=== PATIENT | female | born 1990 | race Caucasian/White ===

== ENCOUNTER 2021-03-13 22:32 | Emergency (ER) | payer MEDICAID, OTHER ==
[~2021-03-13] VITALS: Ht 165.1 cm; Wt 75.0 kg
[2021-03-13 23:10] LABS: CLARITY URINE CLEAR (CLEAR); COLOR URINE YELLOW (YELLOW); KETONES URINE NEGATIVE (NEGATIVE); LEUKOCYTE ESTERASE URINE NEGATIVE (NEGATIVE); NITRITE URINE NEGATIVE (NEGATIVE); OCCULT BLOOD URINE NEGATIVE (NEGATIVE); PH URINE 5.5 (4.5-8.0); PROTEIN URINE NEGATIVE (NEGATIVE); SPECIFIC GRAVITY URINE 1.011 (1.005-1.030); UROBILINOGEN URINE 0.2 E.U./dL (0.2-1.0)
[2021-03-14 00:05] VITALS: BP 167/91
== END 2021-03-14 00:13 | disposition home or self-care (01) ==
LOC: ER 22:32
DX: I10 Essential (primary) hypertension (principal); E11.9 Type 2 diabetes mellitus without complications; Z91.14 Patient's other noncompliance with medication regimen
CPT/HCPCS: 81003; 93005; 99284

== ENCOUNTER 2021-12-06 23:20 | Emergency (ER) | payer OTHER, MEDICAID ==
[~2021-12-06] VITALS: Ht 160 cm; Wt 71.9 kg
[2021-12-06 23:40] VITALS: BP 142/91
== END 2021-12-07 04:03 | disposition left against medical advice (07) ==
LOC: ER 23:20
DX: Z53.21 Procedure and treatment not carried out due to patient leaving prior to being seen by health care provider (principal)

== ENCOUNTER 2022-05-08 05:01 | Emergency (ER) | payer MEDICAID, OTHER ==
[~2022-05-08] VITALS: Ht 165.1 cm; Wt 701.9 kg
[2022-05-08 05:06] VITALS: BP 156/96
[2022-05-08] MEDS ORDERED: OXYCODONE HCL/ACETAMINOPHEN 5/325MG TABLET PO ONE (06:30)
[2022-05-08 06:50] LABS: HEMATOCRIT. 39.7 % (36.0-48.0); HEMOGLOBIN. 12.8 g/dL (12.0-16.0); MEAN CORPUSCULAR HEMOGLOBIN 27.2 pg (28.0-32.0); MEAN CORPUSCULAR VOLUME 84.3 fL (81.0-99.0); MEAN PLATELET VOLUME 8.6 fl (7.4-10.4); PLATELET 371 x1000/uL (130-400); RED BLOOD CELL COUNT 4.71 mill/uL (4.2-5.4); RED CELL DISTRIBUTION WIDTH 13.9 % (11.6-14.6)
[2022-05-08 07:01] LABS: CHLORIDE 95 mEq/L (98-107)
[2022-05-08 07:13] LABS: HCG SCREEN NEGATIVE
[2022-05-08] MEDS ORDERED: INSULIN REGULAR (HUMULIN R) 300UNITS/3ML VIAL SUBCUT ONE (07:45)
[2022-05-08 08:12] LABS: CLARITY URINE CLOUDY (CLEAR); COLOR URINE YELLOW (YELLOW); KETONES URINE 1+ (NEGATIVE); LEUKOCYTE ESTERASE URINE TRACE (NEGATIVE); NITRITE URINE NEGATIVE (NEGATIVE); OCCULT BLOOD URINE TRACE (NEGATIVE); PH URINE 5.5 (4.5-8.0); PROTEIN URINE NEGATIVE (NEGATIVE); SPECIFIC GRAVITY URINE 1.032 (1.005-1.030); UROBILINOGEN URINE 0.2 E.U./dL (0.2-1.0)
[2022-05-08] MEDS ORDERED: OXYC-100 PO ×2 (08:16)
[2022-05-08] MEDS ORDERED: IBUP-2028 PO ×2 (08:16)
[2022-05-08 09:41] LABS: PLATELET ESTIMATE NORMAL
== END 2022-05-08 08:50 | disposition home or self-care (01) ==
LOC: ER 05:01
DX: N23 Unspecified renal colic (principal); E11.65 Type 2 diabetes mellitus with hyperglycemia; I10 Essential (primary) hypertension; Z98.890 Other specified postprocedural states
CPT/HCPCS: 36415; 74176; 80053; 81003; 83690; 84703; 85025; 96372; 99285; J1815

== ENCOUNTER 2022-05-12 13:20 | Inpatient (IN) | payer MEDICAID, OTHER ==
[~2022-05-12] VITALS: Ht 152.4 cm; Wt 70.8 kg
[~2022-05-12 13:20] MED LIST: IBUP-2028 PO; OXYC-100 PO
[2022-05-12] MEDS ORDERED: SODIUM CHLORIDE 0.9% 1,000 ML IV NR (13:45)
[2022-05-12] MEDS ORDERED: ONDANSETRON HCL 4MG/2ML INJ IV NR (13:45)
[2022-05-12] MEDS ORDERED: KETOROLAC 15MG/ML VIAL IV NR (13:45)
[2022-05-12 15:15] LABS: INR 0.9
[2022-05-12 15:16] LABS: CHLORIDE 84 mEq/L (98-107)
[2022-05-12 15:23] LABS: ETHANOL BLOOD < 10 mg/dL
[2022-05-12 15:31] LABS: HCG SCREEN NEGATIVE
[2022-05-12 15:33] LABS: BASOPHILS % 0.3 % (0.0-2.0); EOSINOPHILS % 0.2 % (0.0-5.0); HEMATOCRIT. 35.5 % (36.0-48.0); HEMOGLOBIN. 11.9 g/dL (12.0-16.0); LYMPHOCYTES % 7.6 % (20.0-50.0); MEAN CORPUSCULAR HEMOGLOBIN 27.2 pg (28.0-32.0); MEAN CORPUSCULAR VOLUME 81.3 fL (81.0-99.0); MONOCYTES % 9.1 % (2.0-8.0); NEUTROPHILS % 82.8 % (40.0-76.0); PLATELET 264 x1000/uL (130-400); RED BLOOD CELL COUNT 4.37 mill/uL (4.2-5.4); RED CELL DISTRIBUTION WIDTH 14.6 % (11.6-14.6)
[2022-05-12] MEDS ORDERED: INSULIN REGULAR (HUMULIN R) 300UNITS/3ML VIAL SUBCUT NR (16:15)
[2022-05-12 17:54] LABS: CLARITY URINE CLOUDY (CLEAR); COLOR URINE RED (YELLOW); KETONES URINE 1+ (NEGATIVE); LEUKOCYTE ESTERASE URINE 1+ (NEGATIVE); NITRITE URINE NEGATIVE (NEGATIVE); OCCULT BLOOD URINE 3+ (NEGATIVE); PROTEIN URINE 2+ (NEGATIVE); SPECIFIC GRAVITY URINE 1.025 (1.005-1.030); UROBILINOGEN URINE 0.2 E.U./dL (0.2-1.0)
[2022-05-12 18:04] LABS: *AMPHETAMINES SCREEN URINE NEGATIVE (NEGATIVE); *BARBITURATES SCREEN URINE NEGATIVE (NEGATIVE); *BENZODIAZEPINES SCREEN URINE NEGATIVE (NEGATIVE); *COCAINE SCREEN URINE NEGATIVE (NEGATIVE); CANNABINOID URINE SCREEN NEGATIVE (NEGATIVE); METHADONE URINE SCREEN NEGATIVE (NEGATIVE); OPIATES URINE SCREEN NEGATIVE (NEGATIVE); PHENCYCLIDINE URINE SCREEN NEGATIVE (NEGATIVE)
[2022-05-12] MEDS ORDERED: CEFTRIAXONE 1 G PREMIX 50 ML IV ONE (18:30)
[2022-05-12] MEDS ORDERED: INSULIN REGULAR (HUMULIN R) 300UNITS/3ML VIAL SUBCUT ONE (19:15)
[2022-05-13 09:00] VITALS: BP 121/74
[2022-05-13] MEDS ORDERED: HYDROCODONE/ACETAMINOPHEN 5/325MG TABLET PO PRN (11:00)
[2022-05-13] MEDS: ENOXAPARIN 40MG/0.4ML SYR SUBCUT SCH (11:00)
[2022-05-13] MEDS ORDERED: IPRATROPIUM BROMIDE (0.02%) 0.5MG/2.5ML NEB HHN PRN (11:00)
[2022-05-13] MEDS ORDERED: CLONIDINE 0.1MG TABLET PO PRN (11:00)
[2022-05-13] MEDS ORDERED: IPRATROPIUM/ALBUTEROL 0.5-3(2.5)MG/3ML NEB HHN PRN (11:00)
[2022-05-13] MEDS ORDERED: NALOXONE HCL 0.4MG/ML VIAL IV PRN (11:00)
[2022-05-13] MEDS ORDERED: ALBUTEROL (0.083%) 2.5MG/3ML NEB HHN PRN (11:00)
[2022-05-13] MEDS: SODIUM CHLORIDE 0.45% 1,000 ML IV SCH ×2 (11:00→21:16)
[2022-05-13 11:05] VITALS: BP 121/74
[2022-05-13 12:20] VITALS: BP 103/50
[2022-05-13] MEDS: BLOOD SUGAR DIAGNOSTIC STRIP TEST SCH ×3 (12:20→21:15)
[2022-05-13] MEDS ORDERED: BLOOD SUGAR DIAGNOSTIC STRIP TEST SCH (12:20)
[2022-05-13] MEDS ORDERED: DEXTROSE 50% WATER 50ML SYRINGE IV PRN (12:30)
[2022-05-13] MEDS: INSULIN LISPRO 100 UNITS/ML SUBCUT SCH ×3 (12:50→21:15)
[2022-05-13] MEDS ORDERED: LEVOFLOXACIN 500MG PREMIX 100 ML IV SCH (13:00)
[2022-05-13] MEDS ORDERED: INSULIN LISPRO 100 UNITS/ML SUBCUT NR (13:15)
[2022-05-13 16:06] VITALS: BP 147/92
[2022-05-13 16:14] LABS: BASOPHILS % 0.2 % (0.0-2.0); EOSINOPHILS % 0.3 % (0.0-5.0); HEMATOCRIT. 31.4 % (36.0-48.0); HEMOGLOBIN. 10.3 g/dL (12.0-16.0); LYMPHOCYTES % 8.6 % (20.0-50.0); MEAN CORPUSCULAR VOLUME 82.4 fL (81.0-99.0); MEAN PLATELET VOLUME 8.4 fl (7.4-10.4); MONOCYTES % 7.3 % (2.0-8.0); NEUTROPHILS % 83.6 % (40.0-76.0); PLATELET 244 x1000/uL (130-400); RED BLOOD CELL COUNT 3.81 mill/uL (4.2-5.4); RED CELL DISTRIBUTION WIDTH 14.7 % (11.6-14.6)
[2022-05-13 20:00] VITALS: BP 106/62
[2022-05-13] MEDS: ONDANSETRON HCL 4MG/2ML INJ IV PRN (23:54)
[2022-05-14] VITALS: BP 112/73
[2022-05-14 04:00] VITALS: BP 124/76
[2022-05-14] MEDS: SODIUM CHLORIDE 0.45% 1,000 ML IV SCH ×2 (05:19→21:02)
[2022-05-14 08:00] VITALS: BP 119/69
[2022-05-14] MEDS: ONDANSETRON HCL 4MG/2ML INJ IV PRN (08:09)
[2022-05-14] MEDS: INSULIN LISPRO 100 UNITS/ML SUBCUT SCH ×4 (08:10→21:02)
[2022-05-14] MEDS: BLOOD SUGAR DIAGNOSTIC STRIP TEST SCH ×4 (08:16→21:02)
[2022-05-14] MEDS: ACETAMINOPHEN 325MG TABLET PO PRN ×3 (10:22→20:57)
[2022-05-14] MEDS ORDERED: POTASSIUM CHLORIDE 20MEQ TABLET SR PO NR (11:00)
[2022-05-14 12:00] VITALS: BP 115/70
[2022-05-14] MEDS: ENOXAPARIN 40MG/0.4ML SYR SUBCUT SCH (12:02)
[2022-05-14] MEDS: INSULIN GLARGINE 100 UNITS/ML SUBCUT SCH (12:04)
[2022-05-14] MEDS: DOCUSATE SODIUM 250MG CAPSULE PO SCH (12:09)
[2022-05-14] MEDS: LEVOFLOXACIN 250MG PREMIX 50 ML IV SCH (13:10)
[2022-05-14 16:00] VITALS: BP 110/68
[2022-05-14 20:00] VITALS: BP 107/69
[2022-05-15] VITALS: BP 104/62
[2022-05-15 04:00] VITALS: BP 125/71
[2022-05-15] MEDS: SODIUM CHLORIDE 0.45% 1,000 ML IV SCH ×2 (04:28→12:28)
[2022-05-15] MEDS: BLOOD SUGAR DIAGNOSTIC STRIP TEST SCH ×2 (06:04→12:20)
[2022-05-15] MEDS: ACETAMINOPHEN 325MG TABLET PO PRN ×2 (06:21→10:59)
[2022-05-15 08:00] VITALS: BP 115/77
[2022-05-15] MEDS: INSULIN LISPRO 100 UNITS/ML SUBCUT SCH ×2 (08:42→13:53)
[2022-05-15] MEDS: DOCUSATE SODIUM 250MG CAPSULE PO SCH (08:43)
[2022-05-15] MEDS: ENOXAPARIN 40MG/0.4ML SYR SUBCUT SCH (10:59)
[2022-05-15] MEDS: LEVOFLOXACIN 250MG PREMIX 50 ML IV SCH (11:09)
[2022-05-15] MEDS: INSULIN GLARGINE 100 UNITS/ML SUBCUT SCH (11:09)
[2022-05-15 12:01] VITALS: BP 125/78
[2022-05-15] MEDS ORDERED: INSU100I28 SQ (14:05)
[2022-05-15] MEDS ORDERED: CIPR-263 MT (14:05)
[2022-05-15 15:07] VITALS: BP 125/78
[2022-05-15 16:00] VITALS: BP 129/83
== END 2022-05-15 16:41 | disposition home or self-care (01) | DRG 463 ==
LOC: ER 13:31 → MICUSO 05-13 02:18 → EDBEDREQSVC 05-13 02:21 → EDBEDREQ 05-13 02:21 → EDBEDREQTM 05-13 02:21 → 6EST 05-13 09:00
PROVIDERS: ADMIT Internal Medicine; ATTEND Internal Medicine
DX: N12 Tubulo-interstitial nephritis, not specified as acute or chronic (principal); N17.9 Acute kidney failure, unspecified; E44.1 Mild protein-calorie malnutrition; E11.22 Type 2 diabetes mellitus with diabetic chronic kidney disease; E87.6 Hypokalemia; N18.9 Chronic kidney disease, unspecified; N20.0 Calculus of kidney; Z20.822 Contact with and (suspected) exposure to COVID-19; I12.9 Hypertensive chronic kidney disease with stage 1 through stage 4 chronic kidney disease, or unspecified chronic kidney disease; E78.5 Hyperlipidemia, unspecified; Z87.442 Personal history of urinary calculi; Z98.891 History of uterine scar from previous surgery; Z79.4 Long term (current) use of insulin; E11.65 Type 2 diabetes mellitus with hyperglycemia
CPT/HCPCS: 36415; 74176; 76770; 80048; 80053; 80305; 80320; 81003; 82550; 82962; 83036; 84703; 85025; 87426; 99285; C9803; J0696; J1650; J1815; J1885; J1956; J2405; G0480